=== PATIENT | male | born 2000 | race African-American/Black ===

== ENCOUNTER 2020-03-04 15:35 | Emergency (ER) | payer OTHER ==
[~2020-03-04] VITALS: Ht 172.7 cm; Wt 77.6 kg
[2020-03-04] MEDS ORDERED: KETOROLAC TROMETHAMINE 10 MG TAB PO ONE (17:30)
[2020-03-04] MEDS ORDERED: LIDOCAINE VISCOUS 2% SOLN 15ML UDC SSP ONE (17:30)
[2020-03-04] MEDS ORDERED: AUGMENTIN 875 MG TAB PO ONE (17:30)
[2020-03-04] MEDS ORDERED: KETO10TAB PO (17:35)
[2020-03-04] MEDS ORDERED: AUGM875T28 PO (17:35)
[2020-03-04] MEDS ORDERED: LIDO2SOL17 PO (17:35)
[2020-03-04 17:42] VITALS: BP 125/69
== END 2020-03-04 17:44 | disposition home or self-care (01) ==
LOC: M ED 15:35
DX: K04.7 Periapical abscess without sinus (principal)